=== PATIENT | female | born 1990 | race Caucasian/White ===

== ENCOUNTER → 2016-07-14 | Outpatient (CLI) | payer BC, MEDICAID | END | disposition home or self-care (01) | LOC: LABWHC1 16:16 | PROVIDERS: ATTEND Obstetrics & Gynecology | DX: N92.5 Other specified irregular menstruation (principal) | CPT/HCPCS: 36415; 84702 ==

== ENCOUNTER → 2016-11-05 | Outpatient (CLI) | payer BC, MEDICAID | END | disposition home or self-care (01) | LOC: LABWHC1 16:50 | PROVIDERS: ATTEND Obstetrics & Gynecology Reproductive Endocrinology | DX: N97.0 Female infertility associated with anovulation (principal) | CPT/HCPCS: 36415; 84144 ==

== ENCOUNTER → 2017-01-17 | Outpatient (CLI) | payer BC, MEDICAID | END | disposition home or self-care (01) | LOC: LABWHC1 09:16 | PROVIDERS: ATTEND Obstetrics & Gynecology Reproductive Endocrinology | DX: N97.0 Female infertility associated with anovulation (principal) | CPT/HCPCS: 36415; 84144 ==

== ENCOUNTER → 2017-04-02 | Outpatient (CLI) | payer BC, MEDICAID | END | disposition home or self-care (01) | LOC: LABWHC1 06:31 | PROVIDERS: ATTEND Obstetrics & Gynecology Reproductive Endocrinology | DX: N91.2 Amenorrhea, unspecified (principal) | CPT/HCPCS: 36415; 84702 ==

== ENCOUNTER → 2017-04-06 | Outpatient (CLI) | payer BC, MEDICAID ==
[2017-04-06 07:24] LABS: HCG,Quantitative Serum 449.5 mIU/mL
== END | disposition home or self-care (01) ==
LOC: LABWHC1 06:32
PROVIDERS: ATTEND Obstetrics & Gynecology Reproductive Endocrinology
DX: N91.2 Amenorrhea, unspecified (principal)
CPT/HCPCS: 36415; 84144; 84443; 84702; 86850; 86900; 86901

== ENCOUNTER → 2017-04-10 | Outpatient (CLI) | payer BC, MEDICAID | END | disposition home or self-care (01) | LOC: LABWHC1 07:00 | PROVIDERS: ATTEND Obstetrics & Gynecology Reproductive Endocrinology | DX: N91.2 Amenorrhea, unspecified (principal) | CPT/HCPCS: 36415; 84702 ==

== ENCOUNTER 2017-12-08 12:32 | Inpatient (IN) | payer MEDICAID ==
[2017-12-16] MEDS ORDERED: TERBUTALINE 1 MG/ML VIAL SQ PRN (05:54)
[2017-12-16] MEDS ORDERED: LIDOCAINE 0.5% (PF) 5 MG/ML (50 ML SDV) SQ PRN (05:54)
[2017-12-16] MEDS ORDERED: CARBOPROST TROMETHAMINE 250 MCG/ML 1 ML AMP IM PRN (05:54)
[2017-12-16] MEDS ORDERED: OXYTOCIN 10 UNIT/ML 1 ML VIAL IM PRN (05:54)
[2017-12-16] MEDS ORDERED: METHYLERGONOVINE 0.2 MG/ML 1 ML AMP IM PRN (05:54)
[2017-12-16] MEDS ORDERED: LACTATED RINGERS 1,000 ML IV SCH (06:00)
[2017-12-16 06:06] VITALS: BMI 30.4
[2017-12-16 06:13] LABS: Glucose,Whole Blood 97 mg/dL (75-99)
[2017-12-16] MEDS: LACTATED RINGERS 1,000 ML IV SCH ×2 (06:15→11:41)
[2017-12-16] MEDS: OXYTOCIN 20 UNITS/1000 ML NS 1,000 ML IV SCH ×2 (06:16→18:14)
[2017-12-16 06:22] LABS: Basophils % (A) 0 %; Eosinophils # (A) 0.1 k/uL (0-0.7); Eosinophils % (A) 1 %; HCT 37.5 % (34.0-46.0); HGB 12.8 gm/dL (11.4-16.0); Lymphocytes % (A) 24 %; MCH 30.4 pg (25.0-35.0); MCHC 34.2 g/dL (31.0-37.0); MCV 88.9 fL (80.0-100.0); Mean Platelet Volume 7.9; Monocytes # (A) 0.6 k/uL (0-1.0); Monocytes % (A) 7 %; Neutrophils # (A) 5.6 k/uL (1.3-7.7); Neutrophils % (A) 65 %; Platelet Count 211 k/uL (150-450); RBC 4.22 m/uL (3.80-5.40); RDW 14.1 % (11.5-15.5); WBC 8.5 k/uL (3.8-10.6)
--- NOTE | 2017-12-16 07:26 | P.HPOB ---
History of Present Illness H&P Date: 12/16/17 Chief Complaint: 40 and one sevenths weeks intrauterine This is a 27 year old white female 1 para 0 EDC 12/08/2017 at 41 and one sevenths weeks' gestation. Patient presents today for induction with favorable cervix and postdates . She denies fluid leakage or vaginal bleeding. Fetus is been active throughout the . history is significant for blood type A+, rubella status immune. VDRL testing, urine culture, hepatitis B surface antigen, group B strep cultures, gonorrhea and chlamydia cultures all negative. One-hour Glucola elevated, 3 hour GTT consistent with gestational diabetes. Patient was started on insulin at 32 weeks' gestation and has had excellent blood sugar control since that time. Past medical history is significant for polycystic ovarian syndrome. Past surgical history: Fracture repair 1996. Current medications vitamins daily. ALLERGIES none known. Family history significant for anxiety and depression, heart disease and hypertension, schizophrenia and hypothyroidism. 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 On exam this is a pleasant female, 5 foot 8 inches, 200 pounds, vital signs are stable and she is afebrile. The general physical exam is within normal limits. The extremities are negative for edema. Blood sugar on admission 94. The cervix is 3-4 cm dilated, 60-70% effaced, -2 station, vertex presentation. Artificial amniorrhexis reveals clear fluid. heart rate is in the 130s to 140s with frequent accelerations consistent with reactive NST. Uterine contractions are occurring approximately every 4 minutes apart and are mild at this time. Impression: 41 and one sevenths weeks intrauterine . Here for induction of labor, all signs reassuring. Plan: Oxytocin per hospital protocol. Close maternal and surveillance. Anticipate normal spontaneous vaginal delivery. Review of Systems Constitutional: Reports as per HPI Past Medical History Additional Past Medical History / Comment(s): PCOS History of Any Multi-Drug Resistant Organisms: None Reported Past Surgical History: Orthopedic Surgery Past Anesthesia/Blood Transfusion Reactions: No Reported Reaction Past Psychological History: Anxiety Smoking Status: Never smoker Past Alcohol Use History: None Reported Past Drug Use History: None Reported - Past Family History Mother Family Medical History: Hypertension Medications and Allergies Home Medications Medication Instructions Recorded Confirmed Type 114/Iron A-G/Folate 1 1 tab PO DAILY 09/22/17 12/16/17 History [Prenate Elite Tablet] Insulin Detemir [Levemir Flextouch] 16 unit SQ ONCE 12/16/17 12/16/17 History Allergies Allergy/AdvReac Type Severity Reaction Status Date / Time shellfish derived [Shellfish] AdvReac Swelling Verified 09/22/17 08:38 Exam Vital Signs Temp Pulse Resp BP Pulse Ox 12/16/17 05:52 98.7 F 67 16 144/95 99 Intake and Output 12/15/17 12/16/17 12/16/17 22:59 06:59 14:59 Other: # Voids 1 Weight 90.718 kg See dictation under HPI please Results Result Diagrams: 12/16/17 06:05 Assessment and Plan Assessment: 41 and one sevenths weeks intrauterine , here for induction of labor, all signs reassuring Plan: Oxytocin per hospital protocol. Analgesic options have been reviewed with the patient. Close maternal and surveillance. Anticipate normal spontaneous vaginal delivery. Time with Patient: Less than 30
[2017-12-16] MEDS ORDERED: ROPIVACAINE 100 MG, fentaNYL (PF) 200 MCG in SODIUM CHLORIDE 0.9% 76 ML EPIDURAL ONE (11:35)
[2017-12-16 15:20] LABS: Hemoglobin A1C 4.7 % (4.0-6.0)
--- NOTE | 2017-12-16 17:22 | P.PROBDLV ---
Vaginal Delivery Note - . Vaginal Delivery Note: This is a 27 rolled white female 1 para 0 EDC 12/08/2017 at 41 and one sevenths weeks' gestation. Patient presented for induction of labor for postdates , cervix reasonably favorable. remarkable for gestational diabetes, on insulin, blood sugar on admission 94. Blood type A positive. Rubella status immune. Please see dictated history and physical for details. Artificial amniorrhexis revealed clear fluid. Oxytocin was started and titrated per hospital protocol. She became uncomfortable and requested an epidural, this was placed without difficulty. Patient had a relative arrest of dilatation, but then dilation commenced. She was judged to be completely dilated at 1637 hrs. The perineal body was prepped and draped in usual sterile fashion and the second stage of labor began. With excellent maternal expulsive efforts the head crowned in the occiput anterior position. She restituted accordingly. There was a very tight nuchal cord 1 that could not be reduced spontaneously, therefore was doubly clamped and ligated. The shoulders delivered easily and the patient was officially delivered of a liveborn female at 1703 hrs. The umbilical cord was clamped at the umbilicus and trimmed. Infant was handed to waiting nurses for evaluation where scores of 9 and 9 at one and 5 minutes respectively were given. Weighed 8 pounds 2.5 ounces or 3700 g. The placenta delivered spontaneously, it was inspected and noted to be intact with trivascular cord at 1707 hrs. Inspection of the cervix, vagina, perineum, periurethral, and perirectal areas revealed a small first-degree perineal laceration. This was repaired in the usual fashion with a single [id number] suture of 3-0 Vicryl. Fundus is firm and in the midline, symmetric and 18 week size upon completion of delivery. All sponge needle and enhancement counts are correct at the end of the procedure. Patient and her family are allowed to begin the bonding experience in the LDR. Total estimated blood loss 300 mL's.
[2017-12-16] MEDS ORDERED: diphenhydrAMINE 25 MG CAP PO PRN (17:25)
[2017-12-16] MEDS ORDERED: LANOLIN CREAM 5 GM TUBE TOPICAL PRN (17:25)
[2017-12-16] MEDS ORDERED: BENZOCAINE/MENTHOL SPRAY 1 GM/SPRAY AEROSOL TOPICAL PRN (17:25)
[2017-12-16] MEDS ORDERED: diphenhydrAMINE 50 MG CAP PO PRN (17:25)
[2017-12-16] MEDS ORDERED: SIMETHICONE 80 MG CHEWABLE PO PRN (17:25)
[2017-12-16] MEDS ORDERED: ACETAMINOPHEN TAB 325 MG TAB PO PRN (17:25)
[2017-12-16] MEDS ORDERED: WITCH HAZEL 1 EACH MED..PAD TOPICAL PRN (17:25)
[2017-12-16] MEDS ORDERED: ZOLPIDEM 5 MG TAB PO PRN (17:25)
[2017-12-16] MEDS ORDERED: HYDROCORTISONE 2.5% RECTAL CREAM 30 GM TUBE RECTAL PRN (17:25)
[2017-12-16] MEDS ORDERED: diphenhydrAMINE 50 MG/ML 1 ML VIAL IVP PRN ×2 (17:25)
[2017-12-16] MEDS ORDERED: diphenhydrAMINE ELIXIR 25 MG/10 ML CUP PO PRN (17:25)
[2017-12-16] MEDS ORDERED: ACETAMINOPHEN IV (For NPO) 1,000 MG in EMPTY BAG 1 BAG IVPB ONE (18:15)
[2017-12-16] MEDS: IBUPROFEN 600 MG TAB PO PRN (19:42)
[2017-12-16] MEDS: SENNOSIDES-DOCUSATE SODIUM 1 EACH TAB PO SCH (19:42)
[2017-12-17 06:54] LABS: Basophils % (A) 0 %; Eosinophils # (A) 0.1 k/uL (0-0.7); Eosinophils % (A) 1 %; HCT 34.8 % (34.0-46.0); HGB 11.9 gm/dL (11.4-16.0); Lymphocytes % (A) 13 %; MCH 30.5 pg (25.0-35.0); MCHC 34.3 g/dL (31.0-37.0); MCV 88.9 fL (80.0-100.0); Monocytes % (A) 6 %; Neutrophils # (A) 12.1 k/uL (1.3-7.7); Neutrophils % (A) 78 %; Platelet Count 182 k/uL (150-450); RBC 3.92 m/uL (3.80-5.40); RDW 14.2 % (11.5-15.5); WBC 15.4 k/uL (3.8-10.6)
[2017-12-17] MEDS: IBUPROFEN 600 MG TAB PO PRN ×2 (07:54→17:56)
[2017-12-17] MEDS: SENNOSIDES-DOCUSATE SODIUM 1 EACH TAB PO SCH (07:58)
--- NOTE | 2017-12-17 09:23 | P.DS ---
Providers Date of admission: 12/16/17 05:45 Expected date of discharge: 12/17/17 Attending physician: Mouna Fry Primary care physician: Stated None - Discharge Diagnosis(es) (1) Term Current Visit: Yes Status: Acute (2) GDM (gestational diabetes mellitus) Current Visit: Yes Status: Acute Hospital Course: This is a very pleasant 27-year-old 1 para 0 that presented to labor and delivery for elective induction of labor secondary to postdates at 41 and one sevenths weeks. Patient was known gestational diabetic and on insulin. Patient was admitted Pitocin induction of labor was begun, amniotomy was performed and clear fluid was obtained. Patient progressed to labor, became complete began pushing and had a normal spontaneous vaginal delivery of a viable female infant, at 1703, weight of 8 pounds 2.5 ounces, Apgars of 9 and 9 at one and 5 minutes respectively. A first-degree vaginal laceration was noted which was repaired in the usual fashion with 3-0 Vicryl. Next Patient's course has been uneventful she is ambulating and voiding without difficulty. She is breast-feeding with some difficulty, and states her pain is well-controlled. She denies any concerns currently, she is considering discharge home at 24 hours. Patient Condition at Discharge: Good Plan - Discharge Summary New Discharge Prescriptions: No Action 114/Iron A-G/Folate 1 [Prenate Elite Tablet] 1 tab PO DAILY Insulin Detemir [Levemir Flextouch] 16 unit SQ ONCE Discharge Medication List 114/Iron A-G/Folate 1 [Prenate Elite Tablet] 1 tab PO DAILY 09/22/17 [ History] Insulin Detemir [Levemir Flextouch] 16 unit SQ ONCE 12/16/17 [History] Follow up Appointment(s)/Referral(s): Mouna Fry MD [STAFF PHYSICIAN] - 6 Weeks Patient Instructions/Handouts: Vaginal Delivery (DC), Vaginal Delivery (GEN)
[2017-12-17 18:11] VITALS: BP 127/72; PULSE 61; RESP 16; TEMP 97.5
== END 2017-12-17 18:22 | disposition home or self-care (01) | DRG 807 ==
LOC: 4FBP 12-16 05:45
PROVIDERS: ADMIT Obstetrics & Gynecology; ATTEND Obstetrics & Gynecology
PROC: 10E0XZZ Delivery of Products of Conception, External Approach (ICD-10-PCS; principal; 2017-12-16)
PROC: 00HU33Z Insertion of Infusion Device into Spinal Canal, Percutaneous Approach (ICD-10-PCS; principal; 2017-12-16)
PROC: 3E033VJ Introduction of Other Hormone into Peripheral Vein, Percutaneous Approach (ICD-10-PCS; principal; 2017-12-16)
PROC: 3E0R3NZ Introduction of Analgesics, Hypnotics, Sedatives into Spinal Canal, Percutaneous Approach (ICD-10-PCS; principal; 2017-12-16)
PROC: 0HQ9XZZ Repair Perineum Skin, External Approach (ICD-10-PCS; principal; 2017-12-16)
PROC: 10907ZC Drainage of Amniotic Fluid, Therapeutic from Products of Conception, Via Natural or Artificial Opening (ICD-10-PCS; principal; 2017-12-16)
DX: O48.0 Post-term pregnancy (principal); Z37.0 Single live birth; O69.1XX0 Labor and delivery complicated by cord around neck, with compression, not applicable or unspecified; O70.0 First degree perineal laceration during delivery; O24.424 Gestational diabetes mellitus in childbirth, insulin controlled; E28.2 Polycystic ovarian syndrome; Z3A.41 41 weeks gestation of pregnancy; Z79.4 Long term (current) use of insulin; Z81.8 Family history of other mental and behavioral disorders; Z82.49 Family history of ischemic heart disease and other diseases of the circulatory system; Z83.49 Family history of other endocrine, nutritional and metabolic diseases; Z91.013 Allergy to seafood
CPT/HCPCS: 83036; 85025; 86850; 86900; 86901; 88307

== ENCOUNTER 2017-12-30 19:16 | Emergency (ER) | payer MEDICAID ==
[2017-12-30] MEDS ORDERED: SODIUM CHLORIDE 0.9% 1,000 ML IV STA (19:58)
[2017-12-30 20:19] LABS: Basophils % (A) 0 %; Eosinophils # (A) 0.3 k/uL (0-0.7); Eosinophils % (A) 2 %; HGB 14.6 gm/dL (11.4-16.0); Lymphocytes # (A) 0.6 k/uL (1.0-4.8); Lymphocytes % (A) 4 %; MCH 29.5 pg (25.0-35.0); MCHC 33.9 g/dL (31.0-37.0); Monocytes # (A) 0.3 k/uL (0-1.0); Monocytes % (A) 2 %; Neutrophils # (A) 12.8 k/uL (1.3-7.7); Neutrophils % (A) 91 %; Platelet Count 287 k/uL (150-450); RBC 4.94 m/uL (3.80-5.40); RDW 13.1 % (11.5-15.5); WBC 14.1 k/uL (3.8-10.6)
[2017-12-30 20:27] LABS: ALT 26 U/L (9-52); AST 18 U/L (14-36); Albumin 3.8 g/dL (3.5-5.0); Alkaline Phosphatase 101 U/L (38-126); Anion Gap 8 mmol/L; Blood Urea Nitrogen 10 mg/dL (7-17); Calcium 9.3 mg/dL (8.4-10.2); Carbon Dioxide 24 mmol/L (22-30); Chloride 107 mmol/L (98-107); Glucose 102 mg/dL (74-99); Sodium 139 mmol/L (137-145); Total Bilirubin 0.7 mg/dL (0.2-1.3)
[2017-12-30 20:51] LABS: Appearance,Urine Cloudy (Clear); Bilirubin,Urine Negative (Negative); Blood,Urine Moderate (Negative); Color,Urine Yellow; Glucose,Urine (UA) Negative (Negative); Ketones,Urine 2+ (Negative); Leukocyte Esterase,Urine Moderate (Negative); Mucus,Urine Many /hpf; Nitrite,Urine Negative (Negative); Protein,Urine 1+ (Negative); RBC,Urine 2 /hpf (0-5); Specific Gravity,Urine 1.021 (1.001-1.035); Squamous Epithelial Cell,Urine 2 /hpf (0-4); WBC,Urine 28 /hpf (0-5)
--- NOTE | 2017-12-30 21:24 | ED ---
Fever HPI - General Chief Complaint: Fever Stated Complaint: fever Time Seen by Provider: 12/30/17 19:25 Source: patient, family Mode of arrival: ambulatory Limitations: no limitations - History of Present Illness Initial Comments: 27-year-old female patient who is 2 weeks after a vaginal delivery presents to the emergency department today for evaluation of fever. Patient states that today she is feeling unwell and did notice elevated temperature at 102F at home. States she did call her software consultant who told her to take ibuprofen. States took 600 mg of ibuprofen it did decrease a fever for a short time and then the temperature spiked back up to 103F this evening. Patient states she is having generalized body aches. She is , she is unsure about any breast redness. Denies breast tenderness. States that she is having vaginal bleeding but denies any odor. Denies any hematuria, dysuria, urinary urgency. States she is actually had decreased urine output today. She denies any abdominal pain. She denies any nausea, vomiting, constipation, diarrhea, cough, nasal congestion, or sore throat. Denies any sick contacts. Patient denies any recent rash, shortness breath, chest pain, nausea, vomiting, back pain, numbness, tingling, dizziness, weakness, headache, visual changes, or any other complaints. - Related Data Home Medications Medication Instructions Recorded Confirmed 114/Iron A-G/Folate 1 1 tab PO DAILY 09/22/17 12/30/17 [Prenate Elite Tablet] Previous Rx's Medication Instructions Recorded Dicloxacillin [Dynapen] 500 mg PO Q6H #40 capsule 12/31/17 Allergies Allergy/AdvReac Type Severity Reaction Status Date / Time shellfish derived [Shellfish] AdvReac Swelling Verified 12/30/17 19:48 Review of Systems ROS Statement: Those systems with pertinent positive or pertinent negative responses have been documented in the HPI. ROS Other: All systems not noted in ROS Statement are negative. Past Medical History Additional Past Medical History / Comment(s): PCOS History of Any Multi-Drug Resistant Organisms: None Reported Past Surgical History: Orthopedic Surgery Past Anesthesia/Blood Transfusion Reactions: No Reported Reaction Past Psychological History: Anxiety Smoking Status: Never smoker Past Alcohol Use History: None Reported Past Drug Use History: None Reported - Past Family History Mother Family Medical History: Hypertension General Exam Limitations: no limitations General appearance: alert, in no apparent distress, other (This is a well- developed, well-nourished adult female patient in no acute distress. Vital signs upon presentation are temperature 102.2F, pulse 122, respirations 20, blood pressure 142/84, pulse ox 98% on room air.) Eye exam: Present: normal appearance, PERRL, EOMI. Absent: scleral icterus, conjunctival injection, periorbital swelling ENT exam: Present: normal exam, normal oropharynx, mucous membranes moist Respiratory exam: Present: normal lung sounds bilaterally. Absent: respiratory distress, wheezes, rales, rhonchi, stridor Cardiovascular Exam: Present: normal rhythm, tachycardia, normal heart sounds. Absent: systolic murmur, diastolic murmur, rubs, gallop, clicks GI/Abdominal exam: Present: soft, normal bowel sounds. Absent: distended, tenderness, guarding, rebound, rigid Neurological exam: Present: alert, oriented X3, CN II-XII intact Psychiatric exam: Present: normal affect, normal mood Skin exam: Present: warm, dry, intact, normal color, other (Patient has presence of erythema, tenderness, and firmness of the right lateral breast between 6:00 and 9:00. There is no induration or evidence of fluid collection upon palpation.). Absent: rash Course Vital Signs 12/30/17 12/30/17 12/31/17 19:16 22:18 00:00 Temperature 102.2 F H 102.0 F H 102.7 F H Pulse Rate 122 H 106 H Respiratory 20 16 Rate Blood Pressure 142/84 139/79 O2 Sat by Pulse 98 96 Oximetry 12/31/17 12/31/17 01:04 02:10 Temperature 101.6 F H 99.5 F Pulse Rate 112 H 94 Respiratory 16 16 Rate Blood Pressure 139/91 137/87 O2 Sat by Pulse 97 97 Oximetry Medical Decision Making - Medical Decision Making 27-year-old female patient who is 2 weeks after a vaginal delivery presents to the emergency department today with elevated temperature with T-max at 103.0F. Physical examination did reveal right sided breast redness and firmness between 6:00 and 9:00. Lungs are clear to auscultation with good air movement. Patient had no upper respiratory symptoms. Chest x-ray showed no acute cardiopulmonary process. Transvaginal ultrasound was obtained and showed no abnormalities. Influenza testing was negative. Labs reviewed and did reveal white blood cell count of 14.1, urinalysis showed presence of white blood cells and leukocyte esterase. Urine was sent for culture. I did discuss the case with my attending Dr. Kidd, she did ultrasound the right breast and found no evidence of fluid collection or abscess. I attending Dr. Kidd did discuss the case with patient's [facility] doctor Ang. All parties are comfortable with discharge home. Patient was given 1 g Rocephin here in the emergency department. She'll be started on dicloxacillin and discharged home to follow-up with Dr. Fry for recheck as soon as possible. She is instructed take Tylenol and Motrin for pain and fever control. She was educated regarding continuation of breast-feeding and wearing nonrestrictive clothing. Return parameters were discussed in detail. She verbalizes understanding and agrees with this plan. - Lab Data Result diagrams: 12/30/17 20:05 12/30/17 20:05 Lab Results 12/30/17 12/30/17 12/30/17 Range/Units 20:05 20:05 20:05 WBC 14.1 H (3.8-10.6) k/uL RBC 4.94 (3.80-5.40) m/uL Hgb 14.6 (11.4-16.0) gm/dL Hct 43.0 (34.0-46.0) % MCV 87.0 (80.0-100.0) fL MCH 29.5 (25.0-35.0) pg MCHC 33.9 (31.0-37.0) g/dL RDW 13.1 (11.5-15.5) % Plt Count 287 (150-450) k/uL Neutrophils % 91 % Lymphocytes % 4 % Monocytes % 2 % Eosinophils % 2 % Basophils % 0 % Neutrophils # 12.8 H (1.3-7.7) k/uL Lymphocytes # 0.6 L (1.0-4.8) k/uL Monocytes # 0.3 (0-1.0) k/uL Eosinophils # 0.3 (0-0.7) k/uL Basophils # 0.0 (0-0.2) k/uL Sodium 139 (137-145) mmol/L Potassium 3.0 L (3.5-5.1) mmol/L Chloride 107 (98-107) mmol/L Carbon Dioxide 24 (22-30) mmol/L Anion Gap 8 mmol/L BUN 10 (7-17) mg/dL Creatinine 0.64 (0.52-1.04) mg/dL Est GFR (CKD-EPI)AfAm >90 (>60 ml/min/1.73 sqM) Est GFR (CKD-EPI)NonAf >90 (>60 ml/min/1.73 sqM) Glucose 102 H (74-99) mg/dL Plasma Lactic Acid Devon 0.8 (0.7-2.0) mmol/L Calcium 9.3 (8.4-10.2) mg/dL Total Bilirubin 0.7 (0.2-1.3) mg/dL AST 18 (14-36) U/L ALT 26 (9-52) U/L Alkaline Phosphatase 101 (38-126) U/L Creatine Kinase (30-135) U/L Total Protein 7.0 (6.3-8.2) g/dL Albumin 3.8 (3.5-5.0) g/dL Urine Color Urine Appearance (Clear) Urine pH (5.0-8.0) Ur Specific Leigh (1.001-1.035) Urine Protein (Negative) Urine Glucose (UA) (Negative) Urine Ketones (Negative) Urine Blood (Negative) Urine Nitrite (Negative) Urine Bilirubin (Negative) Urine Urobilinogen (<2.0) mg/dL Ur Leukocyte Esterase (Negative) Urine RBC (0-5) /hpf Urine WBC (0-5) /hpf Ur Squamous Epith Cells (0-4) /hpf Urine Mucus (None) /hpf Influenza Type A RNA (Not Detectd) Influenza Type B (PCR) (Not Detectd) 12/30/17 12/30/17 12/30/17 Range/Units 20:05 20:22 22:08 WBC (3.8-10.6) k/uL RBC (3.80-5.40) m/uL Hgb (11.4-16.0) gm/dL Hct (34.0-46.0) % MCV (80.0-100.0) fL MCH (25.0-35.0) pg MCHC (31.0-37.0) g/dL RDW (11.5-15.5) % Plt Count (150-450) k/uL Neutrophils % % Lymphocytes % % Monocytes % % Eosinophils % % Basophils % % Neutrophils # (1.3-7.7) k/uL Lymphocytes # (1.0-4.8) k/uL Monocytes # (0-1.0) k/uL Eosinophils # (0-0.7) k/uL Basophils # (0-0.2) k/uL Sodium (137-145) mmol/L Potassium (3.5-5.1) mmol/L Chloride (98-107) mmol/L Carbon Dioxide (22-30) mmol/L Anion Gap mmol/L BUN (7-17) mg/dL Creatinine (0.52-1.04) mg/dL Est GFR (CKD-EPI)AfAm (>60 ml/min/1.73 sqM) Est GFR (CKD-EPI)NonAf (>60 ml/min/1.73 sqM) Glucose (74-99) mg/dL Plasma Lactic Acid Devon (0.7-2.0) mmol/L Calcium (8.4-10.2) mg/dL Total Bilirubin (0.2-1.3) mg/dL AST (14-36) U/L ALT (9-52) U/L Alkaline Phosphatase (38-126) U/L Creatine Kinase 78 (30-135) U/L Total Protein (6.3-8.2) g/dL Albumin (3.5-5.0) g/dL Urine Color Yellow Urine Appearance Cloudy H (Clear) Urine pH 7.0 (5.0-8.0) Ur Specific Leigh 1.021 (1.001-1.035) Urine Protein 1+ H (Negative) Urine Glucose (UA) Negative (Negative) Urine Ketones 2+ H (Negative) Urine Blood Moderate H (Negative) Urine Nitrite Negative (Negative) Urine Bilirubin Negative (Negative) Urine Urobilinogen 2.0 (<2.0) mg/dL Ur Leukocyte Esterase Moderate H (Negative) Urine RBC 2 (0-5) /hpf Urine WBC 28 H (0-5) /hpf Ur Squamous Epith Cells 2 (0-4) /hpf Urine Mucus Many H (None) /hpf Influenza Type A RNA Not Detected (Not Detectd) Influenza Type B (PCR) Not Detected (Not Detectd) - Radiology Data Radiology results: report reviewed, image reviewed Two-view x-ray of the chest is obtained. Heart mediastinum are normal. Lungs are clear. Diaphragm is normal. Bony thorax appears normal. Impression by Dr. Stewart shows normal chest. Transvaginal ultrasound was obtained, report was reviewed in its entirety. Impression by Dr. Stewart shows left ovary not seen. No adnexal mass or free fluid. No evidence of ovarian torsion. Normal endometrium. No free fluid. Disposition Clinical Impression: Mastitis, right, acute Disposition: HOME SELF-CARE Condition: Good Instructions: Mastitis (ED), Fever in Adults (ED) Additional Instructions: Continue to breastfeed. Complete antibiotic prescription in full. Take Tylenol and Motrin for fever control. Follow up with your OBGYN for recheck as soon as possible. Return immediately for any new, worsening, or concerning symptoms. Prescriptions: Dicloxacillin [Dynapen] 500 mg PO Q6H #40 capsule Is patient prescribed a controlled substance at d/c from ED?: No Referrals: Patricia Gracia MD [Primary Care Provider] - 1-2 days
--- NOTE | 2017-12-30 21:29 | US ---
EXAMINATION TYPE: US transvaginal DATE OF EXAM: 12/30/2017 COMPARISON: NONE CLINICAL HISTORY: Pain. 2 weeks post fever. TECHNIQUE: Transvaginal (TV). EXAM MEASUREMENTS: Uterus: 11.0 x 6.3 x 9.9 cm Endometrial Stripe: 1.4 cm Right Ovary: 3.3 x 1.9 x 1.7 cm 1. Uterus: Anteverted wnl 2. Endometrium: wnl 3. Right Ovary: wnl 4. Left Ovary: Obscured by overlying bowel gas Spectral, color and waveform doppler imaging shows good arterial and venous flow within the right o vary; there is no evidence for ovarian torsion. 5. Bilateral Adnexa: wnl 6. Posterior cul-de-sac: wnl IMPRESSION: Left Ovary not seen. No adnexal mass or free fluid. No evidence of ovarian torsion. Indu l endometrium. No free fluid.
[2017-12-30] MEDS ORDERED: KETOROLAC 30 MG/ML 1 ML VIAL IVP STA (21:55)
--- NOTE | 2017-12-30 22:20 | XR ---
EXAMINATION TYPE: XR chest 2V DATE OF EXAM: 12/30/2017 COMPARISON: NONE HISTORY: Chest pain TECHNIQUE: Frontal and lateral views of the chest are obtained. FINDINGS: Heart and mediastinum are normal. Lungs are clear. Diaphragm is normal. Bony thorax appear s normal. IMPRESSION: Normal chest
[2017-12-30] MEDS ORDERED: SODIUM CHLORIDE 0.9% 1,000 ML IV ONE (22:32)
[2017-12-30] MEDS ORDERED: ACETAMINOPHEN TAB 500 MG TAB PO STA (22:32)
[2017-12-30] MEDS ORDERED: POTASSIUM CHLORIDE ER 20 MEQ TAB.ER PO STA (22:39)
[2017-12-31 00:05] VITALS: RESP 16
[2017-12-31] MEDS ORDERED: IBUPROFEN 600 MG TAB PO STA (00:07)
[2017-12-31 02:12] VITALS: BP 137/87; PULSE 94; TEMP 99.5
== END 2017-12-31 02:15 | disposition home or self-care (01) ==
LOC: EC 19:16
DX: O91.22 Nonpurulent mastitis associated with the puerperium (principal); O86.4 Pyrexia of unknown origin following delivery; Z91.013 Allergy to seafood
CPT/HCPCS: 36415; 80053; 82550; 83605; 85025; 81001; 87040; 87086; 87502; 71046; 93976; 76830; 99284; 96365; 96375; 96361 ×2; J0696; J1885

== ENCOUNTER 2020-06-04 06:00 | Inpatient (IN) | payer BC, OTHER ==
[2020-06-04] MEDS ORDERED: TERBUTALINE 1 MG/ML VIAL SQ PRN (06:16)
[2020-06-04] MEDS ORDERED: LIDOCAINE 0.5% (PF) 5 MG/ML (50 ML SDV) SQ PRN (06:16)
[2020-06-04] MEDS ORDERED: METHYLERGONOVINE 0.2 MG/ML 1 ML AMP IM PRN (06:16)
[2020-06-04] MEDS ORDERED: CARBOPROST TROMETHAMINE 250 MCG/ML 1 ML AMP IM PRN (06:16)
[2020-06-04] MEDS ORDERED: OXYTOCIN 10 UNIT/ML 1 ML VIAL IM PRN (06:16)
[2020-06-04 06:25] LABS: Glucose,Whole Blood 111 mg/dL (75-99)
[2020-06-04] MEDS: LACTATED RINGERS 1,000 ML IV SCH ×3 (06:34→15:10)
[2020-06-04] MEDS: OXYTOCIN 30 UNITS/500 ML NS 30 UNIT in SALINE 1 500ML.BAG IV SCH ×2 (06:35→16:33)
[2020-06-04 07:03] LABS: Basophils % (A) 1 %; Eosinophils # (A) 0.2 k/uL (0-0.7); Eosinophils % (A) 2 %; HCT 39.4 % (34.0-46.0); HGB 13.4 gm/dL (11.4-16.0); Lymphocytes # (A) 2.1 k/uL (1.0-4.8); Lymphocytes % (A) 24 %; MCH 30.2 pg (25.0-35.0); MCV 88.9 fL (80.0-100.0); Mean Platelet Volume 9.3; Monocytes # (A) 0.7 k/uL (0-1.0); Monocytes % (A) 8 %; Neutrophils # (A) 5.6 k/uL (1.3-7.7); Neutrophils % (A) 64 %; Platelet Count 237 k/uL (150-450); RBC 4.43 m/uL (3.80-5.40); RDW 14.4 % (11.5-15.5); WBC 8.7 k/uL (3.8-10.6)
--- NOTE | 2020-06-04 08:06 | P.HPOB ---
History of Present Illness H&P Date: 06/04/20 Chief Complaint: Here for induction of labor This is a 30-year-old white female 2 para 1001 EDC 06/10/2020 at 39 and one sevenths weeks' gestation. Patient presents today for induction for suspected large for gestational age fetus and favorable multiparous cervix. She denies vaginal bleeding or fluid leakage. has been remarkable for gestational diabetes, diet controlled. Fasting blood sugar this morning 111. Past medical history significant for PCO OS, anxiety. Past surgical history: Fracture repair 1996. Current medications Lexapro 20 mm grams daily, vitamin daily. ALLERGIES none known. Obstetric history normal spontaneous vaginal delivery at 41 weeks gestation 2018 of 8 lbs. 2 oz. female infant. Family history is significant for anxiety, depression, colon cancer, heart disease, schizophrenia, hypothyroidism, lung cancer, breast cancer. Social history patient is , she is never been a smoker, she works for [employer]. history is significant for blood type A+, rubella status nonimmune. VDRL testing, urine culture, hepatitis B surface antigen, HIV testing, gonorrhea and chlamydia cultures all negative. One-hour Glucola 177, 3 hour GTT consistent with gestational diabetes. Copious strep cultures negative. On exam patient is 5 foot 8 inches, 194 pounds, blood pressure 134/75. General physical exam is within normal limits. Cervix is 3 cm dilated, 60% effaced, -2 station, vertex presentation, anterior. Artificial amniorrhexis reveals clear fluid. heart rate is consistent with reactive NST. Impression: 39 and one sevenths weeks intrauterine , large for ges tational age fetus suspected, gestational diabetic diet controlled. Fasting blood sugar 111. All other signs reassuring. Plan: Oxytocin per hospital protocol. Close maternal and surveillance. Anticipate normal spontaneous vaginal delivery. The possibility of shoulder dystocia has been discussed with the patient in detail. All risks and benefits discussed. Understanding and acceptance verbalized. Review of Systems Constitutional: Reports as per HPI Past Medical History Additional Past Medical History / Comment(s): PCOS, gestational diabetes History of Any Multi-Drug Resistant Organisms: None Reported Past Surgical History: Orthopedic Surgery Additional Past Surgical History / Comment(s): Skull Fracture surgery, [place] tooth extraction Past Anesthesia/Blood Transfusion Reactions: No Reported Reaction Past Psychological History: Anxiety Smoking Status: Never smoker Past Alcohol Use History: None Reported Past Drug Use History: None Reported - Past Family History Mother Family Medical History: Hypertension Medications and Allergies Home Medications Medication Instructions Recorded Confirmed Type 114/Iron A-G/Folate 1 1 tab PO DAILY 09/22/17 06/04/20 History [Prenate Elite Tablet] Escitalopram [Lexapro] 20 mg PO DAILY 06/04/20 06/04/20 History Allergies Allergy/AdvReac Type Severity Reaction Status Date / Time cinnamon AdvReac Swelling Verified 06/04/20 06:15 mint AdvReac Swelling Verified 06/04/20 06:15 shellfish derived [Shellfish] AdvReac Swelling Verified 06/04/20 06:15 Exam Vital Signs Temp Pulse Resp BP 06/04/20 06:17 97.7 F 76 16 134/75 Intake and Output 06/03/20 06/04/20 06/04/20 22:59 06:59 14:59 Other: Weight 87.997 kg See dictation under HPI please Results Result Diagrams: 06/04/20 06:25 Abnormal Lab Results - Last 24 Hours (Table) 06/04/20 Range/Units 06:23 POC Glucose (mg/dL) 111 H (75-99) mg/dL Assessment and Plan Assessment: 39 and one sevenths week intrauterine , gestational diabetes, history of anxiety on Lexapro, large for gestational age fetus suspected. Plan: Oxytocin per hospital protocol. Close maternal and surveillance. Analgesic options reviewed. Anticipate normal spontaneous vaginal delivery. Time with Patient: Less than 30
[2020-06-04] MEDS ORDERED: fentaNYL (PF) 50 MCG/ML 5 ML AMP ONE (11:24)
[2020-06-04] MEDS ORDERED: ROPIVACAINE 5MG/ML 20ML VIAL ONE (11:24)
[2020-06-04] MEDS ORDERED: SODIUM CHLORIDE 0.9% 100 ML BAG ONE (11:24)
[2020-06-04] MEDS ORDERED: diphenhydrAMINE 25 MG CAP PO PRN (15:55)
[2020-06-04] MEDS ORDERED: ZOLPIDEM 5 MG TAB PO PRN (15:55)
[2020-06-04] MEDS ORDERED: diphenhydrAMINE 50 MG CAP PO PRN (15:55)
[2020-06-04] MEDS ORDERED: BENZOCAINE/MENTHOL SPRAY 1 GM/SPRAY AEROSOL TOPICAL PRN (15:55)
[2020-06-04] MEDS ORDERED: HYDROCORTISONE 2.5% RECTAL CREAM 30 GM TUBE RECTAL PRN (15:55)
[2020-06-04] MEDS ORDERED: LANOLIN CREAM 5 GM TUBE TOPICAL PRN (15:55)
[2020-06-04] MEDS ORDERED: SIMETHICONE 80 MG CHEWABLE PO PRN (15:55)
[2020-06-04] MEDS ORDERED: diphenhydrAMINE 50 MG/ML 1 ML VIAL IVP PRN ×2 (15:55)
[2020-06-04] MEDS ORDERED: diphenhydrAMINE ELIXIR 25 MG/10 ML CUP PO PRN (15:55)
[2020-06-04] MEDS ORDERED: MEASLES-MUMPS-RUBELLA VACC/PF 12,500 UNIT/0.5 ML VIAL SQ ONE (15:55)
--- NOTE | 2020-06-04 15:55 | P.PROBDLV ---
Vaginal Delivery Note - . Vaginal Delivery Note: This is a 30-year-old female 2 para 1001 EDC 06/10/2020 at 39 and one sevenths weeks' gestation. Patient presented today for induction with favorable multiparous cervix. Fasting blood sugar 111, gestational diabetes diet controlled. Otherwise unremarkable , rubella status nonimmune, blood type A+. Please see dictated history and physical for details. Artificial amniorrhexis revealed light meconium-stained fluid. Oxytocin was started and titrated per hospital protocol. Epidural was requested and placed per the patient's wishes. She progressed to the first stage of labor and became completely dilated at 1525 hrs. Second stage of labor commenced at that time. With excellent maternal expulsive efforts the infant's head crowned. Perineal body had been prepped and draped in usual sterile fashion. Infant rotated accordingly, there was no nuchal cord noted. The left or anterior shoulder was delivered easily from underneath the pubic symphysis at which time the oropharynx, nasopharynx and external nares were all bulb suctioned on the perineal body. Patient officially delivered a liveborn male at 1535 hrs. Umbilical cord was doubly clamped and ligated, he was handed to waiting nurses for evaluation where scores of 9 and 9 at one and 5 minutes respectively are given. The placenta delivered spontaneously, it was inspected and noted to be intact with trivascular cord at 1538 hrs. Uterus is then massaged. Careful inspection of the cervix, vagina, perineum, perirectal, and periurethral areas revealed no lacerations and no defects. Total estimated blood loss 200 mL's. Infant weighed 3925 g or 8 lbs. 11 oz. Patient and her are requesting circumcision for their son.
[2020-06-04] MEDS: IBUPROFEN 600 MG TAB PO SCH ×2 (16:38→23:46)
[2020-06-04] MEDS ORDERED: SENNOSIDES-DOCUSATE SODIUM 1 EACH TAB PO SCH (20:00)
[2020-06-04 20:11] VITALS: RESP 16
[2020-06-04] MEDS: ACETAMINOPHEN TAB 325 MG TAB PO PRN (20:32)
[2020-06-05] MEDS: ESCITALOPRAM 20 MG TAB PO SCH ×2 (00:36→07:25)
[2020-06-05] MEDS: ACETAMINOPHEN TAB 325 MG TAB PO PRN ×2 (03:36→11:30)
[2020-06-05] MEDS: IBUPROFEN 600 MG TAB PO SCH ×3 (06:08→16:00)
--- NOTE | 2020-06-05 08:28 | P.DS ---
Providers Date of admission: 06/04/20 06:11 Expected date of discharge: 06/05/20 Attending physician: Mouna Fry Primary care physician: Stated None Hospital Course: This is a 30-year-old white female 2 para 1001 EDC 06/10/2020 at 39 and one sevenths weeks' gestation. Patient presented for induction for suspected large for gestational age infant. is remarkable for gestational diabetes, diet controlled, blood sugar on admission 111. Please see dictated history and physical for details, group B strep cultures negative, rubella status nonimmune, blood type B positive. Artificial amniorrhexis revealed light meconium-stained fluid. Oxytocin was started and titrated per hospital protocol. Epidural was placed per her request. She went on to deliver vaginally a liveborn male with scores of 9 and 9 at one and 5 minutes respectively. Infant weighed 3925 g or 8 lbs. 11 oz. No perineal lacerations were encountered. Total estimated blood loss 200 mL's. Please see dictated delivery note for details. This morning the patient is doing well. She is voiding, ambulate in, passing flatus without difficulty. Vital signs are stable and she is afebrile. Fundus is firm and in the midline, symmetric and 18 week size. Extremities are negative for edema. infant is doing well, circumcision has been performed. Patient is judged to be in very good condition for discharge home. She will follow-up in the office with me in 6 weeks. I have reminded her no intercourse, tampons or douching. She will use [id number] Advil or Aleve, or Motrin as needed for pain. She will call with any fevers shakes or chills, foul smelling or copious lochia, with the passage of large blood clots, or indeed with any problems or concerns. Assessment: Doing very well day #1 Patient Condition at Discharge: Good Plan - Discharge Summary Discharge Rx Participant: No New Discharge Prescriptions: No Action 114/Iron A-G/Folate 1 [Prenate Elite Tablet] 1 tab PO DAILY Escitalopram [Lexapro] 20 mg PO DAILY Discharge Medication List 114/Iron A-G/Folate 1 [Prenate Elite Tablet] 1 tab PO DAILY 09/22/17 [History] Escitalopram [Lexapro] 20 mg PO DAILY 06/04/20 [History] Follow up Appointment(s)/Referral(s): Mouna Fry MD [STAFF PHYSICIAN] - 6 Weeks
[2020-06-05 15:40] VITALS: BP 116/68; PULSE 70; TEMP 98.7
== END 2020-06-05 16:20 | disposition home or self-care (01) | DRG 807 ==
LOC: 4FBP 06:11
PROVIDERS: ADMIT Obstetrics & Gynecology; ATTEND Obstetrics & Gynecology
PROC: 10907ZC Drainage of Amniotic Fluid, Therapeutic from Products of Conception, Via Natural or Artificial Opening (ICD-10-PCS; principal; 2020-06-04)
PROC: 10E0XZZ Delivery of Products of Conception, External Approach (ICD-10-PCS; principal; 2020-06-04)
PROC: 3E033VJ Introduction of Other Hormone into Peripheral Vein, Percutaneous Approach (ICD-10-PCS; principal; 2020-06-04)
PROC: 3E0R3BZ Introduction of Anesthetic Agent into Spinal Canal, Percutaneous Approach (ICD-10-PCS; principal; 2020-06-04)
PROC: 00HU33Z Insertion of Infusion Device into Spinal Canal, Percutaneous Approach (ICD-10-PCS; principal; 2020-06-04)
PROC: 3E0134Z Introduction of Serum, Toxoid and Vaccine into Subcutaneous Tissue, Percutaneous Approach (ICD-10-PCS; principal; 2020-06-04)
DX: O24.420 Gestational diabetes mellitus in childbirth, diet controlled (principal); Z37.0 Single live birth; Z3A.39 39 weeks gestation of pregnancy; O99.284 Endocrine, nutritional and metabolic diseases complicating childbirth; E28.2 Polycystic ovarian syndrome; O77.0 Labor and delivery complicated by meconium in amniotic fluid; O36.60X0 Maternal care for excessive fetal growth, unspecified trimester, not applicable or unspecified; O99.344 Other mental disorders complicating childbirth; Z23 Encounter for immunization; F41.9 Anxiety disorder, unspecified; Z87.81 Personal history of (healed) traumatic fracture; Z98.818 Other dental procedure status; Z82.49 Family history of ischemic heart disease and other diseases of the circulatory system; Z81.8 Family history of other mental and behavioral disorders; Z80.0 Family history of malignant neoplasm of digestive organs; Z83.49 Family history of other endocrine, nutritional and metabolic diseases; Z80.1 Family history of malignant neoplasm of trachea, bronchus and lung; Z80.3 Family history of malignant neoplasm of breast; Z79.899 Other long term (current) drug therapy; Z91.02 Food additives allergy status; Z91.013 Allergy to seafood
CPT/HCPCS: 85025; 86850; 86870; 86880; 86900; 86901; 90707

== ENCOUNTER → 2021-04-17 | Outpatient (CLI) | payer OTHER ==
--- NOTE | 2021-04-17 09:29 | XR ---
EXAMINATION TYPE: XR knee complete LT DATE OF EXAM: 04/17/2021 COMPARISON: NONE HISTORY: Pain TECHNIQUE: Three views are submitted. FINDINGS: Joint spaces are preserved. Osseous structures are intact. No acute fracture seen. IMPRESSION: 1. No acute fracture or dislocation.
== END | disposition home or self-care (01) ==
LOC: RADXRMAIN 09:08
PROVIDERS: ATTEND Emergency Medicine
DX: S80.02XA Contusion of left knee, initial encounter (principal); X58.XXXA Exposure to other specified factors, initial encounter

== ENCOUNTER → 2022-12-02 | Outpatient (CLI) | payer BC ==
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
== END | disposition home or self-care (01) ==
LOC: RADXRMAIN 14:36
PROVIDERS: ATTEND Family Medicine
DX: J18.9 Pneumonia, unspecified organism (principal)
CPT/HCPCS: 71046

== ENCOUNTER → 2023-06-09 | Outpatient (CLI) | payer BC ==
[2023-06-09 16:00] LABS: Basophils # (A) 0.03 X 10*3/uL (0.00-0.10); Basophils % (A) 0.4 %; Eosinophils # (A) 0.06 X 10*3/uL (0.04-0.35); Eosinophils % (A) 0.8 %; HCT 38.5 % (37.2-46.3); HGB 12.8 g/dL (12.0-15.0); Lymphocytes # (A) 1.41 X 10*3/uL (0.90-5.00); Lymphocytes % (A) 18.8 %; MCH 30.2 pg (27.0-32.0); MCHC 33.2 g/dL (32.0-37.0); MCV 90.8 FL (80.0-97.0); Mean Platelet Volume 10.6 FL (9.5-12.2); Monocytes # (A) 0.71 X 10*3/uL (0.20-1.00); Monocytes % (A) 9.5 %; NRBC Per 100 WBC 0 X 10*3/uL (0.00-0.01); Neutrophils # (A) 5.27 X 10*3/uL (1.80-7.70); Neutrophils % (A) 70.1 %; Platelet Count 240 X 10*3/uL (140-440); RBC 4.24 X 10*6/uL (4.10-5.20); RDW 12.7 % (11.5-14.5); WBC 7.51 X 10*3/uL (4.50-10.00)
== END | disposition home or self-care (01) ==
LOC: LABPAT 11:16
PROVIDERS: ATTEND Obstetrics & Gynecology Obstetrics
DX: Z01.812 Encounter for preprocedural laboratory examination (principal); O02.1 Missed abortion
CPT/HCPCS: 85025; 86850; 86870; 86880; 86900; 86901; 86902

== ENCOUNTER 2023-06-11 08:45 | Day surgery (SDC) | payer BC ==
[~2023-06-11 08:45] MED LIST: HYDROmorphone 0.5 MG/0.5 ML SYRINGE IVP PRN; LACTATED RINGERS 1,000 ML IV SCH; Pre Op ABX Message 1 EACH MISC MISCELLANE ONE
[2023-06-11] MEDS: LACTATED RINGERS 1,000 ML IV ONE (09:00)
[2023-06-11 09:14] VITALS: RESP 16
[2023-06-11] MEDS: LIDOCAINE 1% (10MG/ML) FOR IV START SQ ONE (09:24)
[2023-06-11] MEDS: DEXAMETHASONE SOD PHOSPHATE 4 MG/ML 1 ML VIAL IV ONE (09:24)
[2023-06-11] MEDS: ONDANSETRON 4 MG/2 ML VIAL IVP ONE (09:24)
[2023-06-11] MEDS ORDERED: fentaNYL (PF) 50 MCG/ML 2 ML AMP ONE (10:04)
[2023-06-11] MEDS ORDERED: MIDAZOLAM 2 MG/2 ML VIAL ONE (10:04)
[2023-06-11] MEDS ORDERED: KETOROLAC 15 MG/ML 1 ML VIAL ONE (10:04)
[2023-06-11] MEDS ORDERED: PROPOFOL 10 MG/ML 20 ML VIAL IV ONE (10:04)
[2023-06-11] MEDS ORDERED: LIDOCAINE 1% INJ 10MG/ML (20 ML MDV) ONE (10:04)
--- NOTE | 2023-06-11 10:58 | P.OP ---
Date of Procedure: 06/11/23 Preoperative Diagnosis: Missed AB Postoperative Diagnosis: Same Procedure(s) Performed: Suction dilation and curettage Anesthesia: MAC Surgeon: Brittaney Chappell Estimated Blood Loss (ml): 50 IV fluids (ml): 300 Urine output (ml): 100 Pathology: other (Uterine contents) Condition: stable Disposition: PACU Indications for Procedure: Missed AB, Rh+ Operative Findings: Moderate amount of products of conception Description of Procedure: Patient was taken back to the operating suite where general anesthesia was obtained without difficulty by the anesthesia department. She was prepped and draped in the normal sterile fashion in the dorsolithotomy position. A weighted speculum placed in the posterior vaginal vault. A red rubber catheter was used to drain the bladder of clear yellow urine. The anterior lip of the cervix was visualized grasped with a single-tooth tenaculum. The endocervical canal was then serially dilated. An 8 mm curved suction curette was then placed through the cervix and toward the endometrial cavity the suction was activated and the uterus was cleared of a moderate amount of products of conception with multiple passes. A gentle sharp curettage revealed the uterus was empty of all products. The suction device was then passed 2 additional times to ensure complete evacuation. The single-tooth tenaculum was taken off of the anterior lip of the cervix, a small amount of bleeding was noted therefore silver nitrate stick was used to obtain hemostasis. All instruments were then removed from the patient's vaginal vault. All counts were noted be correct x 2. Patient tolerated procedure well and was taken to the recovery room awake in stable condition.
[2023-06-11 11:25] VITALS: TEMP 97
[2023-06-11 12:10] VITALS: BP 114/73; PULSE 77
== END 2023-06-11 12:21 | disposition home or self-care (01) ==
LOC: OR 08:45
PROVIDERS: ATTEND Obstetrics & Gynecology Obstetrics
DX: O02.1 Missed abortion (principal); E11.9 Type 2 diabetes mellitus without complications; E03.9 Hypothyroidism, unspecified; F41.9 Anxiety disorder, unspecified; K21.9 Gastro-esophageal reflux disease without esophagitis; Z79.890 Hormone replacement therapy; Z88.8 Allergy status to other drugs, medicaments and biological substances; Z79.899 Other long term (current) drug therapy; Z79.4 Long term (current) use of insulin
CPT/HCPCS: 88305; 59820; J2250; J1100; J2405; J2001; J3010; J1885; J2704

== ENCOUNTER 2024-02-17 20:33 | Outpatient (CLI) | payer BC ==
[2024-02-17 21:37] VITALS: BP 137/85; PULSE 91; RESP 16; TEMP 97.1
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
== END 2024-02-17 21:04 | disposition home or self-care (01) ==
LOC: FBPOP 20:33
PROVIDERS: ATTEND Obstetrics & Gynecology
DX: O9A.212 Injury, poisoning and certain other consequences of external causes complicating pregnancy, second trimester (principal); O24.415 Gestational diabetes mellitus in pregnancy, controlled by oral hypoglycemic drugs; S39.92XA Unspecified injury of lower back, initial encounter; Z91.018 Allergy to other foods; Z91.013 Allergy to seafood; Z3A.25 25 weeks gestation of pregnancy; W00.0XXA Fall on same level due to ice and snow, initial encounter; Y92.096 Garden or yard of other non-institutional residence as the place of occurrence of the external cause
CPT/HCPCS: 99213

== ENCOUNTER 2024-05-19 19:15 | Inpatient (IN) | payer BC ==
[2024-05-19] MEDS ORDERED: miSOPROStoL 200 MCG TAB RECTAL PRN (19:59)
[2024-05-19] MEDS ORDERED: TRANEXAMIC 1,000 MG/100ML-NACL 1,000 MG in EMPTY BAG 1 BAG IV PRN (19:59)
[2024-05-19] MEDS ORDERED: LIDOCAINE 0.5% (PF) 5 MG/ML (50 ML SDV) SQ PRN (19:59)
[2024-05-19] MEDS ORDERED: OXYTOCIN 10 UNIT/ML 1 ML VIAL IM PRN (19:59)
[2024-05-19] MEDS ORDERED: miSOPROStoL 200 MCG TAB PO PRN (19:59)
[2024-05-19] MEDS ORDERED: METHYLERGONOVINE 0.2 MG/ML 1 ML AMP IM PRN (19:59)
[2024-05-19] MEDS ORDERED: TERBUTALINE 1 MG/ML VIAL SQ PRN (19:59)
[2024-05-19] MEDS ORDERED: CARBOPROST TROMETHAMINE 250 MCG/ML 1 ML AMP IM PRN (19:59)
[2024-05-19] MEDS ORDERED: NALBUPHINE 10 MG/ML (10 ML MDV) IV PRN (20:04)
[2024-05-19] MEDS: LACTATED RINGERS 1,000 ML IV SCH (21:18)
[2024-05-19 21:19] LABS: Basophils % (A) 0 %; Eosinophils # (A) 0.1 k/uL (0-0.7); Eosinophils % (A) 2 %; HCT 32.7 % (34.0-46.0); Lymphocytes # (A) 1.6 k/uL (1.0-4.8); Lymphocytes % (A) 23 %; MCH 28.8 pg (25.0-35.0); MCHC 33.8 g/dL (31.0-37.0); MCV 85.3 fL (80.0-100.0); Mean Platelet Volume 9.2; Monocytes # (A) 0.5 k/uL (0-1.0); Monocytes % (A) 7 %; Neutrophils # (A) 4.7 k/uL (1.3-7.7); Neutrophils % (A) 66 %; Platelet Count 224 k/uL (150-450); Poikilocytosis Slight; RBC 3.83 m/uL (3.80-5.40); RDW 13.9 % (11.5-15.5); WBC 7.1 k/uL (3.8-10.6)
[2024-05-20] MEDS: LEVOTHYROXINE 25 MCG TAB PO SCH (06:34)
[2024-05-20] MEDS: OXYTOCIN 30 UNITS/500 ML NS 30 UNIT in SALINE 1 500ML.BAG IV SCH (07:15)
[2024-05-20 07:24] LABS: Glucose,Whole Blood 86 mg/dL (70-110)
--- NOTE | 2024-05-20 09:45 | US ---
EXAMINATION TYPE: US OB limited DATE OF EXAM: 05/20/2024 COMPARISON: NONE CLINICAL INDICATION: Female, 34 years old with history of position; Position Dr. Chappell tired to do inversion with ultrasound guidance unable to move baby. TECHNIQUE:: FINDINGS: GESTATIONAL AGE / DATING No growth performed on today?s study per ordering physician SURVEY PRESENTATION: Breech Unable to do inversion. IMPRESSION: Breech presentation. Reported unable to do inversion. [facility], , 05/20/2024 9:43 AM
[2024-05-20] MEDS: ESCITALOPRAM 20 MG TAB PO SCH (09:55)
[2024-05-20] MEDS: PRENATAL VIT-IRON-FOLIC ACID 1 EACH TABLET PO SCH (09:55)
[2024-05-20] MEDS: CITRIC ACID-SODIUM CITRATE 15 ML CUP PO ONE (09:55)
[2024-05-20] MEDS ORDERED: MORPHINE SULFATE (PF) 0.3 MG/0.3 ML SYR ONE (09:57)
[2024-05-20] MEDS ORDERED: ONDANSETRON 4 MG/2 ML VIAL ONE (09:57)
[2024-05-20] MEDS ORDERED: NALBUPHINE (ANES) 10 MG/ML - 1 ML AMP ONE (09:57)
[2024-05-20] MEDS ORDERED: OXYTOCIN 30 UNITS/500 ML NS BAG IV ONE (09:57)
[2024-05-20] MEDS ORDERED: DEXAMETHASONE SOD PHOSPHATE 4 MG/ML 1 ML VIAL ONE (09:57)
--- NOTE | 2024-05-20 10:48 | P.OP ---
Date of Procedure: 05/20/24 Preoperative Diagnosis: IUP at 39-0/7 weeks, unstable lie Postoperative Diagnosis: Same Procedure(s) Performed: Primary low-transverse section Anesthesia: spinal Surgeon: Brittaney Chappell [employer] Superintendent #1: Justo Chaparro Estimated Blood Loss (ml): 418 IV fluids (ml): 900 Urine output (ml): 200 Pathology: none sent Condition: stable Disposition: observation Indications for Procedure: 34-year-old G3, P2 at 39-0/7 weeks with unstable lie. Patient vertex last evening upon presentation this morning patient transverse, attempted version failed. Patient counseled on section for unstable lie. Patient is in agreement. All questions are answered. Operative Findings: Viable female delivered at 1019, weight of 7 pounds 7 ounces, footling breech, Apgars of 9 and 9 at 1 and 5 minutes respectively Description of Procedure: The patient was prepped and draped in the usual fashion after spinal anesthesia was administered by the department. A Pfannenstiel incision was made and extended of the abdominal cavity without difficulty. The bladder peritoneum was elevated and incised and reflected distally. A 2 cm incision was made in the transverse plane of the lower uterine segment to enter the uterus at which time clear fluid was noted. The incision was extended in both directions using the bandage scissors. The feet were encountered within the field and delivered up and through the incision, the hips were grasped bilaterally elevated and the infant was delivered to the chest, both arms were swept in front of the face, head was delivered without difficulty. Spontaneous cry was noted at , the nose and mouth were suctioned. The placenta was delivered manually, intact, and was grossly normal with a grossly normal three-vessel cord. The uterus was exteriorized and the interior cavity of the uterus swept of any remaining placental and membranous fragments with a laparotomy sponge. The margins of the incision were grasped with Allis clamps and the incision closed in 2 layers. First layer was a running locking layer of 0 Vicryl from margin to margin followed by a second layer of imbricating 0 Vicryl from margin to margin. Any small points of bleeding were then made hemostatic with the Bovie. Once hemostasis was achieved, the posterior cul-de-sac was suctioned with a guard and the uterine and ovarian findings are as noted above. The uterus was replaced within the abdominal cavity and the gutters swept of any remaining blood fluid or clot. The incision was again reexamined and hemostasis was noted to be excellent. Any small point of bleeding were made hemostatic with the Bovie. Once hemostasis was achieved the parietal peritoneum was loosely reapproximated. The layer of muscles were examined and made hemostatic with the Bovie. Attention was then turned to the fascia which was closed with 0 Vicryl in a running fashion from 1 lateral edge to the other. The subcutaneous tissues were irrigated, made hemostatic with the Bovie, and reapproximated with a running stitch of 30 Vicryl. The skin was reapproximated with regular surgical freddy. Estimated blood loss for the case was approximately 418 mL. All sponge instrument and needle counts are correct. There were no complications. The patient tolerated the procedure well and proceeded to the recovery room in stable condition. Both mother and infant are resting comfortably in recovery.
[2024-05-20] MEDS ORDERED: diphenhydrAMINE 50 MG CAP PO PRN (10:49)
[2024-05-20] MEDS ORDERED: ZOLPIDEM 5 MG TAB PO PRN (10:49)
[2024-05-20] MEDS ORDERED: ONDANSETRON 4 MG/2 ML VIAL IVP PRN (10:49)
[2024-05-20] MEDS ORDERED: METOCLOPRAMIDE 5 MG/ML 2 ML VIAL IVP PRN (10:49)
[2024-05-20] MEDS ORDERED: diphenhydrAMINE 50 MG/ML 1 ML VIAL IVP PRN ×2 (10:49)
[2024-05-20] MEDS ORDERED: NALOXONE 0.4 MG/ML 1 ML VIAL IV PRN ×2 (10:49→11:41)
[2024-05-20] MEDS ORDERED: SIMETHICONE 80 MG CHEWABLE PO PRN (10:49)
[2024-05-20] MEDS ORDERED: diphenhydrAMINE 25 MG CAP PO PRN (10:49)
--- NOTE | 2024-05-20 10:49 | P.HPOB ---
History of Present Illness H&P Date: 05/19/24 Chief Complaint: IUP at 38 and 6, latent labor This is a 34-year-old 3 para 2-0-0-2 at 38-6/7 weeks that presents to labor and delivery with regular painful contractions. Patient has been receiving routine care which has been complicated by diagnosis of ges tational diabetes, insulin. Patient has had blood sugars well-controlled with Dr. Doty. Patient notes good movement. Patient states that contractions began around 1600. She denies loss of fluid or vaginal bleeding. Patient was noted to be breech on her last visit. Review of Systems Constitutional: Denies chills, Denies fatigue, Denies fever Ears, nose, mouth and throat: Denies headache Cardiovascular: Reports leg edema Respiratory: Denies dyspnea Gastrointestinal: Denies nausea, Denies vomiting Genitourinary: Reports Past Medical History Past Medical History: Thyroid Disorder Additional Past Medical History / Comment(s): PCOS, hx gestational diabetes, missed ABO ,no bleeding at this time just cramping. History of Any Multi-Drug Resistant Organisms: None Reported Past Surgical History: Orthopedic Surgery Additional Past Surgical History / Comment(s): Skull Fracture surgery, [place] tooth extraction , 2 epidurals Past Anesthesia/Blood Transfusion Reactions: Family History of Problems w/ Anesthesia Additional Past Anesthesia/Blood Transfusion Reaction / Comment(s): grandmother requires more anesthesia to be effective Smoking Status: Never smoker - Past Family History Mother Family Medical History: Hypertension Medications and Allergies Home Medications Medication Instructions Recorded Confirmed Type 114/Iron A-G/Folate 1 1 tab PO DAILY 09/22/17 06/10/23 History [Prenate Elite Tablet] Escitalopram [Lexapro] 20 mg PO DAILY 06/04/20 06/11/23 History Levothyroxine Sodium [Synthroid] 25 mcg PO DAILY 06/10/23 06/11/23 History metFORMIN HCL [Glucophage] 1 tab PO DAILY 02/17/24 02/17/24 History Insulin Degludec [Tresiba] 18 units SQ 05/19/24 History Allergies Allergy/AdvReac Type Severity Reaction Status Date / Time cinnamon Allergy Swelling Verified 05/19/24 19:43 mint Allergy Swelling Verified 05/19/24 19:43 nutmeg oil (Myristica seed Allergy Swelling Verified 05/19/24 19:43 oil) shellfish derived [Shellfish] Allergy facial Verified 05/19/24 19:43 swelling Exam Osteopathic Statement: *. No significant issues noted on an osteopathic structural exam other than those noted in the History and Physical/Consult. Intake and Output 05/19/24 05/19/24 05/19/24 06:59 14:59 22:59 Other: Weight 100.244 kg Targeted physical exam is performed this date General Is a well-nourished well- developed female in no acute distress, breathing is nonlabored, abdomen is noted to be gravid, on cervical exam she is 2/thick/high vertex presentation by ultrasound and exam. heart tones are noted to be category 1 and she is britt irregularly. Assessment and Plan (1) GDM (gestational diabetes mellitus) Current Visit: No Status: Acute Code(s): O24.419 - GESTATIONAL DIABETES MELLITUS IN , UNSP CONTROL SNOMED Code(s): 61329369 (2) Term Current Visit: No Status: Acute Code(s): Z34.80 - ENCOUNTER FOR SUPRVSN OF NORMAL , UNSP TRIMESTER SNOMED Code(s): 95182735 Plan: Admit to labor and delivery for observation Hold insulin Pitocin in the a.m. if needed for augmentation of labor Epidural if desired Nubain if desired Clear liquid diet as tolerated
[2024-05-20] MEDS: ACETAMINOPHEN IV (For NPO) 1,000 MG in EMPTY BAG 1 BAG IVPB ONE (12:08)
[2024-05-20] MEDS: LACTATED RINGERS 1,000 ML IV SCH (12:09)
[2024-05-20] MEDS: IBUPROFEN 800 MG TAB PO SCH (15:42)
[2024-05-20] MEDS: IBUPROFEN IV 800 MG in SODIUM CHLORIDE 0.9% 250 ML IV ONE (17:39)
[2024-05-20] MEDS: ACETAMINOPHEN TAB 500 MG TAB PO SCH (21:00)
[2024-05-20] MEDS: SENNOSIDES-DOCUSATE SODIUM 1 EACH TAB PO SCH (22:58)
[2024-05-21] MEDS: ACETAMINOPHEN TAB 500 MG TAB PO SCH (04:21)
[2024-05-21] MEDS: IBUPROFEN 800 MG TAB PO SCH (04:21)
[2024-05-21 04:30] LABS: Basophils % (A) 0 %; Eosinophils # (A) 0.1 k/uL (0-0.7); Eosinophils % (A) 1 %; HCT 30.5 % (34.0-46.0); HGB 10.2 gm/dL (11.4-16.0); Lymphocytes % (A) 21 %; MCHC 33.4 g/dL (31.0-37.0); MCV 86.9 fL (80.0-100.0); Mean Platelet Volume 8.9; Monocytes # (A) 0.6 k/uL (0-1.0); Monocytes % (A) 7 %; Neutrophils # (A) 6.5 k/uL (1.3-7.7); Neutrophils % (A) 69 %; Platelet Count 210 k/uL (150-450); Poikilocytosis Slight; RBC 3.51 m/uL (3.80-5.40); RDW 14.1 % (11.5-15.5); WBC 9.4 k/uL (3.8-10.6)
--- NOTE | 2024-05-21 07:55 | P.PN ---
Progress Note - Text Progress Note Date: 05/21/24 Patient was seen and examined at bedside. Received intrathecal morphine 300 mcg for postop pain control as per surgeon request. Today postop day 1 , status post . Today complaining her pain levels 3-4 out of 10 in severity. Able to ambulate without any difficulty. Denied any weakness. Mild itching, getting better. Physical exam: Vitals : stable vitals, afebrile Assessment and plan: S/p , postop day 1 Continue oral pain medications as needed as per primary care. Please contact anesthesia as needed.
--- NOTE | 2024-05-21 08:05 | P.PNOBGPC ---
Subjective - Subjective Patient reports: Reports appetite normal, Reports voiding normally, Reports pain well controlled, Reports ambulating normally : doing well, nursing well Objective - Vital Signs Latest vital signs: Vital Signs Temp Pulse Resp BP Pulse Ox 05/21/24 06:06 17 05/21/24 01:45 13 05/21/24 00:20 98.2 F 65 14 104/64 97 05/20/24 22:00 18 05/20/24 20:30 98.3 F 68 17 102/65 97 05/20/24 16:00 98.3 F 71 16 122/63 97 05/20/24 12:45 97.5 F L 71 16 119/71 99 05/20/24 12:30 65 16 132/75 98 05/20/24 12:15 61 16 128/69 98 05/20/24 12:00 63 16 131/65 99 05/20/24 11:45 63 16 131/69 99 05/20/24 11:30 65 16 136/63 95 05/20/24 11:15 72 16 123/68 100 05/20/24 11:00 74 16 119/56 100 05/20/24 10:45 97.7 F 74 16 118/58 100 Intake and Output 05/20/24 05/21/24 05/21/24 22:59 06:59 14:59 Intake Total 1000 700 Output Total 600 800 Balance 400 -100 Intake: IV 1000 700 Invasive Line 1 700 Output: Urine 600 800 Straight 500 Uretheral (Garcia) 600 Other: Voiding Method Indwelling Catheter # Voids 1 - Exam Extremities: Present: normal Abdomen: Present: normal appearance, soft. Absent: distention, tenderness Incision: Present: normal, dry, intact Uterus: Present: normal, firm (Uterine fundus is tonic and appropriately tender just below the umbilicus.) - Labs Labs: Abnormal Lab Results - Last 24 Hours (Table) 05/21/24 Range/Units 04:08 RBC 3.51 L (3.80-5.40) m/uL Hgb 10.2 L (11.4-16.0) gm/dL Hct 30.5 L (34.0-46.0) % Assessment and Plan (1) Status post section Current Visit: Yes Status: Acute Code(s): Z98.891 - HISTORY OF UTERINE SCAR FROM PREVIOUS SURGERY SNOMED Code(s): 823930377 Plan: Continue routine and postoperative care. I have encouraged the patient to ambulate in the hallways routinely. I would anticipate discharge home tomorrow pending no complications.
[2024-05-22 09:05] VITALS: RESP 16
--- NOTE | 2024-05-22 11:48 | P.DS ---
Providers Date of admission: 05/19/24 19:52 Expected date of discharge: 05/22/24 Attending physician: Brittaney Chappell Primary care physician: Stated None - Discharge Diagnosis(es) (1) Status post section Current Visit: Yes Status: Acute Hospital Course: The patient is a 34-year-old 3 para 2-0-0-2 admitted at 38-6/7 weeks by good dating parameters. She is admitted with regular painful contractions. Her has been complicated by insulin-dependent gestational diabetes with reassuring testing managed by Dr. Doty. She was noted at her last visit to be in breech presentation and this was confirmed upon admission. Attempts to divert the baby were made but unsuccessful. Reportedly, the had been found vertex the day prior representing an unstable lie. She therefore was taken to the operating room where she underwent primary low- transverse section in an uncomplicated fashion and was delivered of a viable 7 pound 7 ounce baby girl with Apgars of 9 at 1 minute and 9 at 5 minutes in the double footling breech presentation. Her and postoperative course was unremarkable with vital signs remaining stable and her temperature was afebrile throughout. She was deemed stable for discharge on and postoperative day #2. Instructions were to follow-up in the office in 2 weeks for an incision check and 6 weeks routinely. Discharge instructions included calling for any significantly increased bleeding or foul-smelling lochia, significantly increased fever abdominal pain, perineal complaints, breast complaints, incisional complaints, or anything else that concerned her. She was additionally instructed to have nothing in the vagina for at least 6 weeks time to include intercourse and to abstain from any heavy lifting over the same period of time. She was lastly instructed to abstain from driving until off of all pain medications or 2 weeks time, whichever came first. She understood her instructions and agrees to follow-up as noted above. Discharge medications included continued vitamins as she has opted to breast-feed as well as [id number] analgesic pain medications. She was provided with a prescription for oxycodone 5 mg, 1-2 p.o. every 6 hours as needed pain, #20 dispensed with no refills. Maternal blood type is Rh+ and rubella status is immune. Discharge hemoglobin and hematocrit were 10.2 and 30.5 respectively. Procedures: #1. Failed external cephalic version #2. Primary low-transverse section Patient Condition at Discharge: Stable Plan - Discharge Summary New Discharge Prescriptions: No Action 114/Iron A-G/Folate 1 [Prenate Elite Tablet] 1 tab PO DAILY Escitalopram [Lexapro] 20 mg PO DAILY Insulin Degludec [Tresiba] 18 units SQ Levothyroxine Sodium [Synthroid] 25 mcg PO DAILY metFORMIN HCL [Glucophage] 1 tab PO DAILY Discharge Medication List 114/Iron A-G/Folate 1 [Prenate Elite Tablet] 1 tab PO DAILY 09/22/17 [History] Escitalopram [Lexapro] 20 mg PO DAILY 06/04/20 [History] Levothyroxine Sodium [Synthroid] 25 mcg PO DAILY 06/10/23 [History] metFORMIN HCL [Glucophage] 1 tab PO DAILY 02/17/24 [History] Insulin Degludec [Tresiba] 18 units SQ 05/19/24 [History] Follow up Appointment(s)/Referral(s): Brittaney Chappell DO [Doctor of Osteopathic Medicine] - 2 Weeks Discharge Disposition: HOME SELF-CARE
[2024-05-22 17:42] VITALS: BP 123/75; PULSE 82; TEMP 97.9
== END 2024-05-22 17:30 | disposition home or self-care (01) | DRG 788 ==
LOC: FBPOP 19:15 → 4FBP 19:52
PROVIDERS: ADMIT Obstetrics & Gynecology Obstetrics; ATTEND Obstetrics & Gynecology Obstetrics
PROC: 10D00Z1 Extraction of Products of Conception, Low, Open Approach (ICD-10-PCS; principal; 2024-05-19)
DX: O32.0XX0 Maternal care for unstable lie, not applicable or unspecified (principal); E28.2 Polycystic ovarian syndrome; O24.424 Gestational diabetes mellitus in childbirth, insulin controlled; O99.284 Endocrine, nutritional and metabolic diseases complicating childbirth; Z37.0 Single live birth; Z3A.38 38 weeks gestation of pregnancy; Z79.890 Hormone replacement therapy; Z3A.39 39 weeks gestation of pregnancy; Z79.899 Other long term (current) drug therapy; Z87.81 Personal history of (healed) traumatic fracture
CPT/HCPCS: 59025; 76815; 85025; 86850; 86870; 86880; 86900; 86901; 99213